=== PATIENT | female | born 1970 | race Caucasian/White ===

== ENCOUNTER → 2023-07-22 12:41 | Outpatient (REF) | payer BC, SELFPAY | LOC: HWRAD 12:41 | PROVIDERS: ATTENDING PHYSICIAN Obstetrics & Gynecology; FAMILY PHYSICIAN Internal Medicine | DX: D25.1 Intramural leiomyoma of uterus (principal); R10.2 Pelvic and perineal pain | CPT/HCPCS: 76830; 76856 ==

== ENCOUNTER → 2023-09-17 17:59 | Outpatient (REF) | payer BC, SELFPAY | LOC: RAD 17:59 | PROVIDERS: ATTENDING PHYSICIAN Internal Medicine | DX: M54.50 Low back pain, unspecified (principal); M54.6 Pain in thoracic spine | CPT/HCPCS: 72070; 72110 ==

== ENCOUNTER → 2023-11-22 17:43 | Outpatient (REF) | payer BC, SELFPAY | LOC: WDC 17:43 | PROVIDERS: ATTENDING PHYSICIAN Obstetrics & Gynecology; FAMILY PHYSICIAN Internal Medicine | DX: Z12.31 Encounter for screening mammogram for malignant neoplasm of breast (principal) | CPT/HCPCS: 77063; 77067 ==

== ENCOUNTER → 2024-08-11 15:07 | Outpatient (REF) | payer BC, SELFPAY | LOC: WDC 15:07 | PROVIDERS: ATTENDING PHYSICIAN Obstetrics & Gynecology; FAMILY PHYSICIAN Internal Medicine | DX: R92.2 Inconclusive mammogram (principal) | CPT/HCPCS: 76641 ==

== ENCOUNTER → 2024-09-07 13:24 | Outpatient (REF) | payer BC, SELFPAY | LOC: HWRAD 13:24 | PROVIDERS: ATTENDING PHYSICIAN Obstetrics & Gynecology; FAMILY PHYSICIAN Internal Medicine | DX: N95.0 Postmenopausal bleeding (principal) | CPT/HCPCS: 76830; 76856 ==

== ENCOUNTER → 2024-11-24 12:09 | Outpatient (REF) | payer BC, SELFPAY | LOC: MRI 12:09 | PROVIDERS: ATTENDING PHYSICIAN Obstetrics & Gynecology; FAMILY PHYSICIAN Internal Medicine | DX: N95.0 Postmenopausal bleeding (principal) | CPT/HCPCS: 72197; A9575 ==

== ENCOUNTER 2024-11-28 06:27 | Day surgery (SDC) | payer BC, SELFPAY ==
[2024-11-17 09:02] LABS: % Basophils 0.5 % (0-2); % Eosinophils 2.1 % (0-6); % Immature Granulocytes 0.2 % (0-0.5); % Lymphocytes 38.8 % (20.5-51.1); % Monocytes 8.2 % (1.7-9.3); % Neutrophils 50.2 % (42.2-75.2); Absolute Eosinophils 0.1 10^3/uL (0-0.7); Absolute Lymphocytes 2.2 10^3/uL (1.2-3.4); Absolute Monocytes 0.5 10^3/uL (0.1-0.6); Absolute Neutrophils 2.9 10^3/uL (1.4-6.5); Hematocrit 46.1 % (37.0-47.0); Hemoglobin 15.3 g/dL (12.0-16.0); Mean Corp Hgb Conc. 33.2 g/dL (33.0-37.0); Mean Corpuscular Hgb 29.9 pg (27.0-31.0); Mean Platelet Volume 12.1 fL (7.4-10.4); Nucleated Red Blood Cells % 0 %; Platelet Count 247 10^3/uL (130-400); Red Blood Cell Count 5.12 10^6/uL (4.20-5.40); Red Cell Dist. Width 13.4 % (11.5-14.5); White Blood Cell Count 5.8 10^3/uL (4.8-10.8)
[2024-11-17 09:22] LABS: Blood Urea Nitrogen 13 mg/dl (7-17); Calcium 9.7 mg/dl (8.4-10.2); Carbon Dioxide 30 mmol/L (22-30); Chloride 106 mmol/L (98-107); Glucose 80 mg/dl (70-99); Potassium 4.1 mmol/L (3.5-5.1); Sodium 143 mmol/L (135-145); eGFR > 60.00
--- NOTE | 2024-11-21 15:23 | PTCARENOTE ---
Abnormal EKG on 11/17/24. Dr. Spain aware. No intervention needed.
[2024-11-28] VITALS (11 sets, daily range): BP systolic 111–140; BP diastolic 68–84
[2024-11-28] MEDS: NEURONTIN 300 MG PO (07:25)
[2024-11-28] MEDS: TYLENOL 1000 MG PO (07:26)
[2024-11-28] MEDS: NORMOSOL-R/PLASMALYTE-A 1000 IV (07:40)
--- NOTE | 2024-11-28 11:49 | W.IMMPOSTOP ---
Surgical Immed Post Op Note
-
Primary Surgeon: Shawna Dean DO
Beater Machine Operator: ESPERANZA Olmos
Pre-op Diagnosis: Recurrent postmenopausal bleeding, fibroid uterus
Post-op Diagnosis: Same
Procedure Performed: Robotic assisted total laparoscopic hysterectomy bilateral salpingo-oophorectomy
Anesthesia Type: General ET, Dr. Castañeda
Specimen / Cultures: Uterus, cervix, bilateral fallopian tubes and bilateral ovaries
Estimated Blood Loss: 10 mL
Urine output: 200 mL clear yellow urine
Complications: None
Operative Findings: Uterus sounded to 9 cm. Multiple exophytic, subserosal and intramural uterine fibroids. Normal-appearing fallopian tubes. Atrophic ovaries.
Counts correct x 2.
Stable to recovery.
[2024-11-28] MEDS: ZOFRAN 4 MG IV (11:57)
[2024-11-28] MEDS: DILAUDID 0.5 MG IV (11:58)
[2024-11-28] MEDS: DEMEROL 12.5 MG IV (11:58)
[2024-11-28] MEDS: TYLENOL 650 MG PO (13:46)
== END 2024-11-28 14:54 | disposition home or self-care (01) ==
LOC: SDS 06:27
PROVIDERS: ATTENDING PHYSICIAN Obstetrics & Gynecology; FAMILY PHYSICIAN Internal Medicine
DX: D25.1 Intramural leiomyoma of uterus (principal); N80.03 Adenomyosis of the uterus; N72 Inflammatory disease of cervix uteri; N94.89 Other specified conditions associated with female genital organs and menstrual cycle; N83.8 Other noninflammatory disorders of ovary, fallopian tube and broad ligament; N95.0 Postmenopausal bleeding
CPT/HCPCS: 58571; 88307; 88311; 80048; 85025; 86850; 86900; 86901; 93005

== ENCOUNTER → 2025-01-25 14:37 | Outpatient (REF) | payer BC, SELFPAY | LOC: WDC 14:37 | PROVIDERS: ATTENDING PHYSICIAN Obstetrics & Gynecology; FAMILY PHYSICIAN Internal Medicine | DX: Z12.31 Encounter for screening mammogram for malignant neoplasm of breast (principal) | CPT/HCPCS: 77063; 77067 ==

== ENCOUNTER → 2025-05-02 12:51 | Outpatient (REF) | payer BC, SELFPAY | LOC: RCS 12:51 | PROVIDERS: ATTENDING PHYSICIAN Internal Medicine | DX: R00.2 Palpitations (principal) | CPT/HCPCS: 93225; 93226 ==